=== PATIENT | female | born 2000 | race Caucasian/White ===

== ENCOUNTER 2020-07-18 06:13 | Emergency (ER) | payer SELFPAY ==
[2020-07-18] MEDS ORDERED: cefTRIAXone 1 GM in Premix Bag 1 BAG IV ONE (06:36)
[2020-07-18] MEDS ORDERED: Sodium Chloride 0.9% 1,000 ML IV ONE ×2 (06:36→06:41)
[2020-07-18] MEDS ORDERED: Sodium Chloride 0.9% 2.5 ML Syringe FLUSH PRN (06:36)
[2020-07-18] MEDS ORDERED: Ketorolac 30 MG/ML SDV IVPUSH ONE (06:36)
[2020-07-18] MEDS ORDERED: Sodium Chloride 0.9% 10 ML Syringe FLUSH PRN (06:36)
[2020-07-18] MEDS ORDERED: Acetaminophen 80 MG/2.5 ML Syringe PO STA (06:41)
--- NOTE | 2020-07-18 06:42 | EDM.PDOC ---
<Mike Almanza - Last Filed: 07/18/20 09:35> ED HPI GENERAL MEDICAL PROBLEM - General Chief Complaint: ENT Problem Stated Complaint: SWOLLEN LYMPH NODES, HARD TO SWALLOW Time Seen by Provider: 07/18/20 06:42 - Related Data Allergies Allergy/AdvReac Type Severity Reaction Status Date / Time No Known Allergies Allergy Verified 07/18/20 06:22 Home Meds: Home Meds Clindamycin HCl 300 mg PO TID #21 capsule 07/18/20 [Rx] dexAMETHasone [Dexamethasone] 10 mg PO ONETIME #2.5 mdv 07/18/20 [Rx] Departure - Departure Time of Disposition: 09:11 Disposition: Home, Self-Care 01 Condition: Fair Clinical Impression: Tonsillitis - Discharge Information *PRESCRIPTION DRUG MONITORING PROGRAM REVIEWED*: No *COPY OF PRESCRIPTION DRUG MONITORING REPORT IN PATIENT JESUSITA: No Prescriptions: Clindamycin HCl 300 mg PO TID #21 capsule dexAMETHasone [Dexamethasone] 10 mg PO ONETIME #2.5 mdv Instructions: Tonsillitis, [id number] Referrals: PCP,None [Primary Care Provider] - Forms: ED Department Discharge Additional Instructions: The patient is informed of any results of their evaluation and diagnostic workup and all questions are answered. They are given discharge instructions and return precautions. The patient is stable for discharge. The patient states they understand and agree with the plan and that they will return if their symptoms get worse or if they have any new concerns. The following information is given to patients seen in the emergency department who are being discharged to home. This information is to outline your options for follow-up care. We provide all patients seen in our emergency department with a follow-up referral. The need for follow-up, as well as the timing and circumstances, are variable depending upon the specifics of your emergency department visit. If you don't have a primary care physician on staff, we will provide you with a referral. We always advise you to contact your personal physician following an emergency department visit to inform them of the circumstance of the visit and for follow-up with them and/or the need for any referrals to a consulting specialist. The emergency department will also refer you to a specialist when appropriate. This referral assures that you have the opportunity for follow-up care with a specialist. All of these measure are taken in an effort to provide you with optimal care, which includes your follow-up. Under all circumstances we always encourage you to contact your private physician who remains a resource for coordinating your care. When calling for follow-up care, please make the office aware that this follow-up is from your recent emergency room visit. If for any reason you are refused follow-up, please contact the [facility] Emergency Department at and asked to speak to the emergency department charge nurse. Today you were diagnosed with tonsillitis. Please take 10 mg of dexamethasone as soon as you get home. Please complete antibiotics as prescribed. Please follow-up with Dr. Jones this week. Call the number below to schedule appointment. Return to the emergency department if trouble breathing, worsening swelling, and worsening speech. Dr. Jones [facility]NT [facility] [phone] <Ernie Hamilton - Last Filed: 07/18/20 20:36> ED HPI GENERAL MEDICAL PROBLEM - History of Present Illness INITIAL COMMENTS - FREE TEXT/NARRATIVE: HISTORY AND PHYSICAL: History of present illness: This is a 20-year-old female with no significant past medical history who presents ER today secondary to 4 days of sore throat with decreased p.o. intake and increased pain over the last couple days. Patient reports that she feels like her throat is muffled and has been having a hard time tolerating p.o. solids. Patient reports that she has been able to drink liquids with some success over the last 1 to 2 days. Patient reports tactile fevers. Patient denies any vomiting or diarrhea. Patient has any dysuria, frequency, urgency. Patient denies any coronavirus exposures or concerns. Patient denies any cough cold or runny nose. Patient has any abdominal pain or chest pain. Patient den ies any other sick family contacts at home. Patient denies any history of hypertension, diabetes, liver, lung, kidney problems. Patient denies any prior abdominal or chest surgeries. Patient has no known drug allergies. Patient denies any alcohol or drugs. Patient reports she does smoke 3 to 4 cigarettes daily. Review of systems: As per history of present illness and below otherwise all systems reviewed and negative. Past medical history: As per history of present illness and as reviewed below otherwise noncontributory. Surgical history: As per history of present illness and as reviewed below otherwise noncontributory. Social history: No reported history of drug or alcohol abuse. Family history: As per history of present illness and as reviewed below otherwise noncontributory. Physical exam: Constitutional: Patient is oriented to person, place, and time. Appears well- developed and well-nourished. No distress. HEENT: Moist mucous membranes Head: Normocephalic and atraumatic Eyes: Right eye exhibits no discharge. Left eye exhibits no discharge. No scleral icterus Neck: Normal range of motion. No tracheal deviation present. Cardiovascular: Normal rate and regular rhythm. Tachycardic with a heart rate of 10 5-1 10 Pulmonary: Effort normal, no respiratory distress. Abdominal: No distention Musculoskeletal: Normal range of motion Neurologic: Alert and oriented to person, place and time. Skin: [place], warm and dry. Psychiatric: Normal mood and affect. Behavior is normal. Judgment and thought content normal. Nursing note and vital signs have been reviewed Patient's ER physical exam is significant for markedly swollen tonsils. Patient's uvula is midline. Patient does have exudates identified in both tonsillar pillars. Patient has 2 fingerbreadth trismus, patient has no tenderness or swelling underneath her tongue or protrusion of her tongue, patient is tolerating her secretions well, patient has bilateral tender submandibular lymphadenopathy. There is no erythema of her neck. Patient's tympanic membrane's are both pearly roberts without any evidence of otitis media or externa is externa. No stridor. Patient's voice is not appear to be muffled although the patient reports that does feel like she is talking like a "deaf person ". Diagnostics: CBC, CMP, CT soft tissue neck with IV contrast, Covid, strep screen, Therapeutics: NSS wide open x2 L Toradol 30 mg IV x1 Tylenol elixir 640 mg p.o. x1 Rocephin 1 g IV Assessment and plan: This is a 20-year-old female who presents ER today with signs symptoms consistent with strep pharyngitis, peritonsillar abscess, possible retropharyngeal abscess. At this time, the patient is clinically and hemodynamically stable. Patient is not exhibiting any signs or symptoms that would be concerning for airway compromise. Patient's voice appears to be clear, she is tolerating her secretions well, there is no stridor, and on exam her tonsils do not appear to be kissing. Patient will receive Tylenol and Toradol to assist with her pain. Patient will receive 2 L normal saline secondary to dehydration and need for IV contrast. Patient get a CT scan of her soft tissue neck with IV contrast to further evaluate the pathology involved. Patient will have a Covid test as well as strep screen performed. Care will be signed out to Dr. Campbell at 7 AM. Definitive disposition and diagnosis as appropriate pending reevaluation and review of above. 07/18/2020 8:35 PM: Follow-up call made to assure continuity. Spoke to mother, reports patient is feeling well and is currently at her friend's house. Has filled her prescription and is taking her antibiotics. throat Pain Score (Numeric/FACES): 8 Past Medical History - Past Health History Medical/Surgical History: Denies Medical/Surgical History HEENT History: Reports: None Cardiovascular History: Reports: None Respiratory History: Reports: None Gastrointestinal History: Reports: None Genitourinary History: Reports: None IMMUNOPATHOLOGIST History: Reports: Musculoskeletal History: Reports: None Neurological History: Reports: None Psychiatric History: Reports: Anxiety, Depression Endocrine/Metabolic History: Reports: None Insulin Pump Model and Shiftman: None Hematologic History: Reports: None Immunologic History: Reports: None Oncologic (Cancer) History: Reports: None Dermatologic History: Reports: None - Infectious Disease History Infectious Disease History: Reports: None - Past Surgical History Head Surgeries/Procedures: Reports: None Social & Family History - Tobacco Use Tobacco Use Status *Q: Current Every Day Tobacco User Years of Tobacco use: 6 Packs/Tins Daily: 0.5 - Caffeine Use Caffeine Use: Reports: Tea - Recreational Drug Use Recreational Drug Use: No ED ROS GENERAL - Review of Systems Review Of Systems: See Below ED EXAM, GENERAL - Physical Exam Exam: See Below Course - Vital Signs Last Recorded V/S: Last Vital Signs Temp 97 F 07/18/20 06:23 Pulse 84 07/18/20 09:59 Resp 16 07/18/20 09:59 BP 119/70 07/18/20 09:59 Pulse Ox 98 07/18/20 09:59 - Orders/Labs/Meds Orders: Active Orders 24 hr Category Date Time Status CULTURE STREP A CONFIRMATION [RM] Stat Lab 07/18/20 06:42 Results STREP SCRN A RAPID W CULT CONF [RM] Stat Lab 07/18/20 06:42 Results Saline Lock Insert [OM.PC] Stat Oth 07/18/20 06:36 Ordered Labs: Laboratory Tests 07/18/20 07/18/20 07/18/20 Range/Units 06:40 06:40 06:40 WBC 20.46 H (4.0-11.0) K/uL RBC 4.34 (4.30-5.90) M/uL Hgb 14.3 (12.0-16.0) g/dL Hct 41.9 (36.0-46.0) % MCV 96.5 (80.0-98.0) fL MCH 32.9 H (27.0-32.0) pg MCHC 34.1 (31.0-37.0) g/dL RDW Std Deviation 47.6 (28.0-62.0) fl RDW Coeff of Len 13 (11.0-15.0) % Plt Count 212 (150-400) K/uL MPV 10.50 (7.40-12.00) fL Neut % (Auto) 82.7 H (48.0-80.0) % Lymph % (Auto) 8.1 L (16.0-40.0) % Bowie % (Auto) 8.9 (0.0-15.0) % Eos % (Auto) 0.2 (0.0-7.0) % Baso % (Auto) 0.1 (0.0-1.5) % Neut # (Auto) 16.9 H (1.4-5.7) K/uL Lymph # (Auto) 1.7 (0.6-2.4) K/uL Bowie # (Auto) 1.8 H (0.0-0.8) K/uL Eos # (Auto) 0.0 (0.0-0.7) K/uL Baso # (Auto) 0.0 (0.0-0.1) K/uL Nucleated RBC % 0.0 /100WBC Nucleated RBCs # 0 K/uL Sodium 139 (136-145) mmol/L Potassium 4.0 (3.5-5.1) mmol/L Chloride 101 (98-107) mmol/L Carbon Dioxide 26.0 (21.0-32.0) mmol/L BUN 9 (7.0-18.0) mg/dL Creatinine 1.0 (0.6-1.0) mg/dL Est Cr Clr Drug Dosing 92.22 mL/min Estimated GFR (MDRD) > 60.0 ml/min Glucose 115 H (74-106) mg/dL Calcium 9.7 (8.5-10.1) mg/dL Total Bilirubin 1.0 (0.2-1.0) mg/dL AST 11 L (15-37) IU/L ALT 17 (14-63) IU/L Alkaline Phosphatase 62 (46-116) U/L Total Protein 8.3 H (6.4-8.2) g/dL Albumin 3.7 (3.4-5.0) g/dL Globulin 4.6 H (2.6-4.0) g/dL Albumin/Globulin Ratio 0.8 L (0.9-1.6) HCG, Qual NEGATIVE (NEG) SARS-CoV-2 RNA (DEBBI) (NEGATIVE) 07/18/20 Range/Units 07:45 WBC (4.0-11.0) K/uL RBC (4.30-5.90) M/uL Hgb (12.0-16.0) g/dL Hct (36.0-46.0) % MCV (80.0-98.0) fL MCH (27.0-32.0) pg MCHC (31.0-37.0) g/dL RDW Std Deviation (28.0-62.0) fl RDW Coeff of Len (11.0-15.0) % Plt Count (150-400) K/uL MPV (7.40-12.00) fL Neut % (Auto) (48.0-80.0) % Lymph % (Auto) (16.0-40.0) % Bowie % (Auto) (0.0-15.0) % Eos % (Auto) (0.0-7.0) % Baso % (Auto) (0.0-1.5) % Neut # (Auto) (1.4-5.7) K/uL Lymph # (Auto) (0.6-2.4) K/uL Bowie # (Auto) (0.0-0.8) K/uL Eos # (Auto) (0.0-0.7) K/uL Baso # (Auto) (0.0-0.1) K/uL Nucleated RBC % /100WBC Nucleated RBCs # K/uL Sodium (136-145) mmol/L Potassium (3.5-5.1) mmol/L Chloride (98-107) mmol/L Carbon Dioxide (21.0-32.0) mmol/L BUN (7.0-18.0) mg/dL Creatinine (0.6-1.0) mg/dL Est Cr Clr Drug Dosing mL/min Estimated GFR (MDRD) ml/min Glucose (74-106) mg/dL Calcium (8.5-10.1) mg/dL Total Bilirubin (0.2-1.0) mg/dL AST (15-37) IU/L ALT (14-63) IU/L Alkaline Phosphatase (46-116) U/L Total Protein (6.4-8.2) g/dL Albumin (3.4-5.0) g/dL Globulin (2.6-4.0) g/dL Albumin/Globulin Ratio (0.9-1.6) HCG, Qual (NEG) SARS-CoV-2 RNA (DEBBI) NEGATIVE (NEGATIVE) Meds: Medications Discontinued Medications Generic Name Dose Route Start Last Admin Trade Name Freq PRN Reason Stop Dose Admin Acetaminophen 640 mg 07/18/20 06:41 07/18/20 07:01 Children's Acetaminophen PO 07/18/20 06:42 Not Given NOW STA Acetaminophen 650 mg 07/18/20 07:01 07/18/20 07:04 Tylenol PO 07/18/20 07:02 650 mg NOW ONE Administration Acetaminophen Confirm 07/18/20 06:58 07/18/20 07:04 Tylenol Administered 07/18/20 06:59 Not Given Dose 650 mg .ROUTE .STK-MED ONE Dexamethasone 10 mg 07/18/20 08:35 07/18/20 09:02 Decadron IVPUSH 07/18/20 08:36 10 mg ONETIME ONE Administration Ceftriaxone Sodium/Dextrose 1 50 mls @ 100 mls/hr 07/18/20 06:36 07/18/20 07:02 gm/ Premix IV 07/18/20 07:05 100 mls/hr ONETIME ONE Administration Sodium Chloride 1,000 mls @ 999 mls/hr 07/18/20 06:36 07/18/20 07:00 Normal Saline IV 07/18/20 07:36 999 mls/hr .Bolus ONE Administration Sodium Chloride 1,000 mls @ 999 mls/hr 07/18/20 06:41 07/18/20 07:39 Normal Saline IV 07/18/20 07:41 999 mls/hr .Bolus ONE Administration Iopamidol 100 ml 07/18/20 07:33 07/18/20 07:34 Isovue-370 (76%) IVPUSH 07/18/20 07:34 100 ml ONETIME ONE Administration Ketorolac Tromethamine 30 mg 07/18/20 06:36 07/18/20 07:00 Toradol IVPUSH 07/18/20 06:37 30 mg ONETIME ONE Administration Sodium Chloride 10 ml 07/18/20 06:36 07/18/20 07:39 Saline Flush FLUSH 10 ml ASDIRECTED PRN Administration Keep Vein Open Sodium Chloride 2.5 ml 07/18/20 06:36 07/18/20 07:39 Saline Flush FLUSH 2.5 ml ASDIRECTED PRN Administration Keep Vein Open Sepsis Event Note (ED) - Evaluation Sepsis Screening Result: No Definite Risk - Focused Exam Vital Signs: Vital Signs Pulse Resp BP Pulse Ox 07/18/20 09:59 84 16 119/70 98 07/18/20 09:24 94 16 117/60 98 07/18/20 08:54 79 16 127/61 98 - My Orders Last 24 Hours: My Active Orders 07/18/20 06:36 Saline Lock Insert [OM.PC] Stat 07/18/20 06:42 CULTURE STREP A CONFIRMATION [RM] Stat STREP SCRN A RAPID W CULT CONF [] Stat - Assessment/Plan Last 24 Hours: My Active Orders 07/18/20 06:36 Saline Lock Insert [OM.PC] Stat 07/18/20 06:42 CULTURE STREP A CONFIRMATION [RM] Stat STREP SCRN A RAPID W CULT CONF [RM] Stat
[2020-07-18] MEDS ORDERED: Acetaminophen 325 MG/10.15 ML ML ONE (06:58)
[2020-07-18] MEDS ORDERED: Acetaminophen 325 MG/10.15 ML ML PO ONE (07:01)
[2020-07-18 07:07] LABS: BLOOD UREA NITROGEN,BUN 9 mg/dL (7.0-18.0); CHLORIDE,CL 101 mmol/L (98-107); GLUCOSE RANDOM 115 mg/dL (74-106); SODIUM,NA 139 mmol/L (136-145)
[2020-07-18] MEDS ORDERED: Iopamidol 755 Mg/ML 100 ML Bottle IVPUSH ONE (07:33)
--- NOTE | 2020-07-18 07:45 | CT ---
INDICATION: Throat pain with trismus. TECHNIQUE: Performed with IV contrast. Contrast: 80 mL of Isovue 370. COMPARISON: None FINDINGS: There is moderate asymmetric enlargement and poor definition of the right oral pharyngeal tonsil, with a small apparent 7 mm peritonsillar fluid collection along its anterior aspect. This is accompanied by blurring of the adjacent tissue planes and mild mass effect extending into the adjacent registered dietetic technician space, submandibular space and tongue base on the right, causing caudal displacement of the right submandibular salivary gland. The appearance is compatible with acute tonsillitis with a small abscess collection. The process produces mild mass effect on the oropharyngeal airway and right supraglottic larynx. Level IIa lymphadenopathy is present bilaterally, more pronounced on the right where there is a 25 mm enlarged node demonstrating heterogeneous pathologic contrast enhancement. Moderate enlargement of the left oropharyngeal tonsil and the nasopharyngeal tonsillar tissue. Normal size lymph nodes are scattered elsewhere along both sides of the neck. The parotid glands, left submandibular gland and thyroid gland are all unremarkable. No worrisome skeletal lesions are identified. The visualized portions of the intracranial contents and apical hemithoraces are unremarkable. IMPRESSION: 1. Ill definition and moderate enlargement of the right oropharyngeal tonsil, with a probable small 7 mm peritonsillar collection anteriorly. 2. Infiltration of the tissue planes in the right upper neck, accompanied by mild mass effect. 3. The appearance is typical for tonsillitis with a small peritonsillar abscess and moderate surrounding cellulitis/phlegmon. 4. Level IIa lymphadenopathy, more pronounced on the right. Please note that all CT scans at this facility use dose modulation, iterative reconstruction, and/or weight-based dosing when appropriate to reduce radiation dose to as low as reasonably achievable. Dictated by Sachin Ramirez MD @ Jul 18 2020 8:53AM Signed by Dr. Sachin Ramirez @ Jul 18 2020 9:06AM
[2020-07-18] MEDS ORDERED: Dexamethasone 10 MG/ML SDV IVPUSH ONE (08:35)
[2020-07-18 09:59] VITALS: BP 119/70; PULSE 84
--- NOTE | 2020-07-19 18:05 | PCM.SN.2 ---
- Free Text/Narrative Note: I contacted patient and she stated that she was feeling much better and was able to eat a full meal and she is now only feeling pain in her throat when she swallows. She stated that her voice has improved and that the swelling has gone down. I discussed continued use of the antibiotics and to return to the ED if she had any worsening symptoms.
== END 2020-07-18 10:03 | disposition home or self-care (01) ==
LOC: MW.ED 06:13
DX: J02.9 Acute pharyngitis, unspecified (principal); F17.210 Nicotine dependence, cigarettes, uncomplicated; Z20.828 Contact with and (suspected) exposure to other viral communicable diseases
CPT/HCPCS: 70491; 80053; 84703; 85025; 87081; 87635; 87880; 96365; 96375; 99284; A9270; J0696; J1100; J1885; J7030; Q9967; 99285; U0002

== ENCOUNTER 2020-09-14 15:02 | Emergency (ER) | payer SELFPAY ==
[2020-09-14] MEDS ORDERED: Dexamethasone 10 MG/ML SDV IVPUSH ONE (15:37)
[2020-09-14] MEDS ORDERED: Sodium Chloride 0.9% 1,000 ML IV ONE ×2 (15:39→18:33)
[2020-09-14] MEDS ORDERED: Clindamycin Phosphate in D5W 300 MG in Premix Bag 1 BAG IV ONE ×2 (16:00)
[2020-09-14 16:26] LABS: BLOOD UREA NITROGEN,BUN 11 mg/dL (7.0-18.0); CARBON DIOXIDE,CO2 26.8 mmol/L (21.0-32.0); CHLORIDE,CL 101 mmol/L (98-107); GLUCOSE RANDOM 105 mg/dL (74-106); POTASSIUM,K 3.8 mmol/L (3.5-5.1); SODIUM,NA 137 mmol/L (136-145)
[2020-09-14] MEDS ORDERED: Iopamidol 755 MG/ML 500 ML Multipack Bottle IVPUSH ONE (17:14)
--- NOTE | 2020-09-14 17:46 | CT ---
INDICATION: Right tonsillar swelling. Throat pain TECHNIQUE: CT soft tissue of the neck was acquired with IV contrast. 75 mL of Isovue 370 administered. COMPARISON: 07/18/2020 FINDINGS: The adenoids are enlarged. There is enlargement of the palatine tonsils. There are edematous and phlegmonous changes adjacent to the right palatine tonsil and in the right parapharyngeal space. An 8 x 6 mm ovoid low-density focus is again seen anterior to the right palatine tonsil on image 78 of series 201, with mild surrounding soft tissue enhancement. A small focus of gas in the medial aspect of the right palatine tonsil was seen on the prior study and is at least partially related to a mucosal fold. There is thickening and edema of the soft palate. The hypopharynx and larynx are patent. The parotid, sublingual and left submandibular glands are within normal limits. There is edema along the superior aspect of the right submandibular gland which could be related to the right tonsillar inflammatory process, however there is soft tissue prominence and enhancement along the right submandibular duct. No discrete thyroid abnormality is visualized. There is an enlarged, mildly enhancing, right level 2 lymph node measuring 1.3 cm in short axis. A borderline left level 2 lymph node is seen. There are mucosal retention cysts or polyps in the right maxillary and right sphenoid sinuses, and mild mucosal thickening in the left maxillary sinus. The mastoid air cells are clear. No suspicious or acute osseous abnormalities are seen. There is mild reversal of the cervical lordosis. Thymic tissue is noted in the superior mediastinum. IMPRESSION: Findings consistent with right tonsillitis with peritonsillar edema and phlegmon extending to the parapharyngeal space, and an 8 mm evolving peritonsillar abscess anteriorly. Edema along the superior aspect of the right submandibular gland could be partially reactive, however there is thickening and enhancement along the right submandibular duct and correlation for right submandibular sialoadenitis is advised. An enlarged right level 2 lymph node and a borderline left level 2 lymph node. Mild paranasal sinus disease. Please note that all CT scans at this facility use dose modulation, iterative reconstruction, and/or weight-based dosing when appropriate to reduce radiation dose to as low as reasonably achievable. Dictated by Lino Noel MD @ Sep 14 2020 5:32PM Signed by Dr. Lino Noel @ Sep 14 2020 5:45PM
[2020-09-14] MEDS ORDERED: Ampicillin/Sulbactam Na 3 GM in Sodium Chloride 0.9% 100 ML IV ONE (18:33)
--- NOTE | 2020-09-14 19:01 | EDM.PDOC ---
ED HPI GENERAL MEDICAL PROBLEM - General Chief Complaint: ENT Problem Stated Complaint: POSSIBLE ABCESS IN THROAT Time Seen by Provider: 09/14/20 15:07 Source of Information: Reports: Patient History Limitations: Reports: No Limitations - History of Present Illness INITIAL COMMENTS - FREE TEXT/NARRATIVE: HISTORY AND PHYSICAL: History of present illness: Patient is a 20-year-old female who presents emergency room today with concern of sore throat over 2 to 3 days. Patient states that she has had a prior abscess of her throat and states that her symptoms today are similar to when she had a prior abscess. Patient states at that time, the abscess had drained spontaneously and states that she did not have to have it drained. Patient states that she is having right-sided sore throat pain which is how she felt when she had the abscess drained. Patient states she has not taken anything for her symptoms. Patient states that she has been able to eat and drink but does have pain with swallowing. Denies any other symptoms or concerns. Patient denies fever, chills, chest pain, shortness of breath, or cough. Denies headache, neck stiff ness, change in vision, syncope, or near syncope. Denies nausea, vomiting, abdominal pain, diarrhea, constipation, or dysuria. Has not noted any blood in urine or stool. Patient has been eating and drinking appropriately. Review of systems: As per history of present illness and below otherwise all systems reviewed and negative. Past medical history: As per history of present illness and as reviewed below otherwise noncontribu tory. Surgical history: As per history of present illness and as reviewed below otherwise noncontributory. Social history: See social history for further information Family history: As per history of present illness and as reviewed below otherwise noncontributory. Physical exam: General: Patient is alert, oriented, and in no acute distress. Patient sitting comfortably on exam table. Tachycardic 110s on exam, otherwise vitally stable. HEENT: Atraumatic, normocephalic, pupils equal and reactive bilaterally, negative for conjunctival pallor or scleral icterus, mucous membranes moist, TMs normal bilaterally, there is right sided tonsil fullness, uvula midline, neck supple, nontender, trachea midline. No drooling or trismus noted. No meningeal signs. No hot potato voice noted. Lungs: Clear to auscultation, breath sounds equal bilaterally, chest nontender. Heart: S1S2, regular rate and rhythm without overt murmur Abdomen: Soft, nondistended, nontender. Negative for masses or hepatosp lenomegaly. Negative for costovertebral tenderness. Pelvis: Stable nontender. Genitourinary: Deferred. Rectal: Deferred. Skin: Intact, warm, dry. No lesions or rashes noted. Extremities: Atraumatic, negative for cords or calf pain. Neurovascular unremarkable. Neuro: Awake, alert, oriented. Cranial nerves II through XII unremarkable. Cerebellum unremarkable. Motor and sensory unremarkable throughout. Exam nonfocal. Notes: I did call and speak to the ENT legal services professional for [facility], Dr. Hauser, and thoroughly discussed patients case. He states that at this time the abscess is so small, it cannot be drained until 2.5-3cm in size. He recommends an additional 3g unasyn and to discharge to home with Augmentin and Decadron. Admission for observation was offered to patient but she declines at this time. All risks vs benefits discussed with patient and expresses understanding. Voices understanding and is agreeable to plan of care. Denies any further questions or concerns at this time. Diagnostics: CBC, CMP, Hcg, Strep, Soft Tissue Neck CT w cont Therapeutics: NS, Clindamycin, Unasyn, Decadron Prescription: Augmentin, Decadron Impression: Pharyngitis possibly early peritonsillar abscess Plan: 1. Take medication as prescribed. Use cough drops and/or other over the counter medications as needed for throat discomfort as discussed. Drink small but frequent sips of fluid to prevent dehydration. 2. Alternate Ibuprofen and Tylenol as directed for pain and discomfort. 3. Follow up with your primary care provider as discussed. 4. Return to the ED as needed and as discussed. Definitive disposition and diagnosis as appropriate pending reevaluation and review of above. Throat Pain Score (Numeric/FACES): 6 - Related Data Allergies Allergy/AdvReac Type Severity Reaction Status Date / Time No Known Allergies Allergy Verified 09/14/20 15:13 Home Meds: Home Meds Amoxicillin/Potassium Clav [Augmentin 875-125 Tablet] 1 each PO BID 10 Days #20 tablet 09/14/20 [Rx] dexAMETHasone [Decadron] 6 mg PO DAILY 3 Days #3 tablet 09/14/20 [Rx] Past Medical History - Past Health History Medical/Surgical History: Denies Medical/Surgical History HEENT History: Reports: None Cardiovascular History: Reports: None Respiratory History: Reports: None Gastrointestinal History: Reports: None Genitourinary History: Reports: None 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: Musculoskeletal History: Reports: None Neurological History: Reports: None Psychiatric History: Reports: Anxiety, Depression Endocrine/Metabolic History: Reports: None Insulin Pump Model and Patient Account Liaison: None Hematologic History: Reports: None Immunologic History: Reports: None Oncologic (Cancer) History: Reports: None Dermatologic History: Reports: None - Infectious Disease History Infectious Disease History: Reports: None - Past Surgical History Head Surgeries/Procedures: Reports: None Social & Family History - Tobacco Use Tobacco Use Status *Q: Current Every Day Tobacco User Years of Tobacco use: 10 Packs/Tins Daily: 0.3 - Caffeine Use Caffeine Use: Reports: Coffee, Energy Drinks, Soda, Tea - Recreational Drug Use Recreational Drug Use: No ED ROS GENERAL - Review of Systems Review Of Systems: Comprehensive ROS is negative, except as noted in HPI. ED EXAM, GENERAL - Physical Exam Exam: See Below (see dictation) Course - Vital Signs Last Recorded V/S: Last Vital Signs Temp 97.2 F 09/14/20 15:13 Pulse 96 09/14/20 19:45 Resp 16 09/14/20 19:45 BP 122/70 09/14/20 19:45 Pulse Ox 96 09/14/20 19:45 - Orders/Labs/Meds Orders: Active Orders 24 hr Category Date Time Status CULTURE BLOOD [BC] Stat Lab 09/14/20 16:40 Received CULTURE BLOOD [BC] Stat Lab 09/14/20 16:50 Received Blood Culture x2 Reflex Set [OM.PC] Stat Oth 09/14/20 16:22 Ordered Labs: Laboratory Tests 09/14/20 09/14/20 09/14/20 Range/Units 15:50 15:50 15:50 WBC 19.05 H (4.0-11.0) K/uL RBC 4.71 (4.30-5.90) M/uL Hgb 15.6 (12.0-16.0) g/dL Hct 45.2 (36.0-46.0) % MCV 96.0 (80.0-98.0) fL MCH 33.1 H (27.0-32.0) pg MCHC 34.5 (31.0-37.0) g/dL RDW Std Deviation 48.4 (28.0-62.0) fl RDW Coeff of Len 14 (11.0-15.0) % Plt Count 222 (150-400) K/uL MPV 10.30 (7.40-12.00) fL Neut % (Auto) 84.2 H (48.0-80.0) % Lymph % (Auto) 8.7 L (16.0-40.0) % [place] % (Auto) 6.8 (0.0-15.0) % Eos % (Auto) 0.2 (0.0-7.0) % Baso % (Auto) 0.1 (0.0-1.5) % Neut # (Auto) 16.0 H (1.4-5.7) K/uL Lymph # (Auto) 1.7 (0.6-2.4) K/uL [place] # (Auto) 1.3 H (0.0-0.8) K/uL Eos # (Auto) 0.0 (0.0-0.7) K/uL Baso # (Auto) 0.0 (0.0-0.1) K/uL Nucleated RBC % 0.0 /100WBC Nucleated RBCs # 0 K/uL Lactate (0.20-2.00) mmol/L Sodium 137 (136-145) mmol/L Potassium 3.8 (3.5-5.1) mmol/L Chloride 101 (98-107) mmol/L Carbon Dioxide 26.8 (21.0-32.0) mmol/L BUN 11 (7.0-18.0) mg/dL Creatinine 0.9 (0.6-1.0) mg/dL Est Cr Clr Drug Dosing 102.47 mL/min Estimated GFR (MDRD) > 60.0 ml/min Glucose 105 (74-106) mg/dL Calcium 9.1 (8.5-10.1) mg/dL Total Bilirubin 0.9 (0.2-1.0) mg/dL AST 13 L (15-37) IU/L ALT 28 (14-63) IU/L Alkaline Phosphatase 73 (46-116) U/L Total Protein 8.4 H (6.4-8.2) g/dL Albumin 4.1 (3.4-5.0) g/dL Globulin 4.3 H (2.6-4.0) g/dL Albumin/Globulin Ratio 1.0 (0.9-1.6) HCG, Qual NEGATIVE (NEG) Group A Strep (PCR) (NOT DETECT) 09/14/20 09/14/20 Range/Units 15:52 16:40 WBC (4.0-11.0) K/uL RBC (4.30-5.90) M/uL Hgb (12.0-16.0) g/dL Hct (36.0-46.0) % MCV (80.0-98.0) fL MCH (27.0-32.0) pg MCHC (31.0-37.0) g/dL RDW Std Deviation (28.0-62.0) fl RDW Coeff of Len (11.0-15.0) % Plt Count (150-400) K/uL MPV (7.40-12.00) fL Neut % (Auto) (48.0-80.0) % Lymph % (Auto) (16.0-40.0) % [place] % (Auto) (0.0-15.0) % Eos % (Auto) (0.0-7.0) % Baso % (Auto) (0.0-1.5) % Neut # (Auto) (1.4-5.7) K/uL Lymph # (Auto) (0.6-2.4) K/uL [place] # (Auto) (0.0-0.8) K/uL Eos # (Auto) (0.0-0.7) K/uL Baso # (Auto) (0.0-0.1) K/uL Nucleated RBC % /100WBC Nucleated RBCs # K/uL Lactate 0.7 (0.20-2.00) mmol/L Sodium (136-145) mmol/L Potassium (3.5-5.1) mmol/L Chloride (98-107) mmol/L Carbon Dioxide (21.0-32.0) mmol/L BUN (7.0-18.0) mg/dL Creatinine (0.6-1.0) mg/dL Est Cr Clr Drug Dosing mL/min Estimated GFR (MDRD) ml/min Glucose (74-106) mg/dL Calcium (8.5-10.1) mg/dL Total Bilirubin (0.2-1.0) mg/dL AST (15-37) IU/L ALT (14-63) IU/L Alkaline Phosphatase (46-116) U/L Total Protein (6.4-8.2) g/dL Albumin (3.4-5.0) g/dL Globulin (2.6-4.0) g/dL Albumin/Globulin Ratio (0.9-1.6) HCG, Qual (NEG) Group A Strep (PCR) NOT DETECTED (NOT DETECT) Meds: Medications Discontinued Medications Generic Name Dose Route Start Last Admin Trade Name Freq PRN Reason Stop Dose Admin Dexamethasone 6 mg 09/14/20 15:37 09/14/20 15:53 Decadron IVPUSH 09/14/20 15:38 6 mg ONETIME ONE Administration Sodium Chloride 1,000 mls @ 999 mls/hr 09/14/20 15:39 09/14/20 15:52 Normal Saline IV 09/14/20 16:39 999 mls/hr STAT ONE Administration Clindamycin Phosphate 300 mg/ 50 mls @ 96.154 mls/hr 09/14/20 16:00 09/14/20 16:05 Premix IV 09/14/20 16:31 96.154 mls/hr ONETIME ONE Administration Ampicillin Sodium/Sulbactam 100 mls @ 200 mls/hr 09/14/20 18:33 09/14/20 18:59 Sodium 3 gm/ Sodium Chloride IV 09/14/20 19:02 200 mls/hr ONETIME ONE Administration Sodium Chloride 1,000 mls @ 999 mls/hr 09/14/20 18:33 09/14/20 18:39 Normal Saline IV 09/14/20 19:33 999 mls/hr STAT ONE Administration Iopamidol 75 ml 09/14/20 17:14 09/14/20 17:16 Isovue Multipack-370 (76%) IVPUSH 09/14/20 17:15 75 ml ONETIME ONE Administration Departure - Departure Time of Disposition: 19:00 Disposition: Home, Self-Care 01 Clinical Impression: Peritonsillar abscess Pharyngitis Qualifiers: Pharyngitis/tonsillitis etiology: unspecified etiology Qualified Code(s): J02.9 - Acute pharyngitis, unspecified - Discharge Information Prescriptions: Amoxicillin/Potassium Clav [Augmentin 875-125 Tablet] 1 each PO BID 10 Days #20 tablet dexAMETHasone [Decadron] 6 mg PO DAILY 3 Days #3 tablet Instructions: Peritonsillar Abscess, [id number] Referrals: PCP,None [Primary Care Provider] - Forms: ED Department Discharge Additional Instructions: The following information is given to patients seen in the emergency department who are being discharged to home. This information is to outline your options for follow-up care. We provide all patients seen in our emergency department with a follow-up referral. The need for follow-up, as well as the timing and circumstances, are variable depending upon the specifics of your emergency department visit. If you don't have a primary care physician on staff, we will provide you with a referral. We always advise you to contact your personal physician following an emergency department visit to inform them of the circumstance of the visit and for follow-up with them and/or the need for any referrals to a consulting specialist. The emergency department will also refer you to a specialist when appropriate. This referral assures that you have the opportunity for follow-up care with a specialist. All of these measure are taken in an effort to provide you with optimal care, which includes your follow-up. Under all circumstances we always encourage you to contact your private physician who remains a resource for coordinating your care. When calling for follow-up care, please make the office aware that this follow-up is from your recent emergency room visit. If for any reason you are refused follow-up, please contact the [facility] Emergency Department at and asked to speak to the emergency department charge nurse. [facility] [address] [place] [id number] [address] 1. Take medication as prescribed. Use cough drops and/or other over the counter medications as needed for throat discomfort as discussed. Drink small but frequent sips of fluid to prevent dehydration. 2. Alternate Ibuprofen and Tylenol as directed for pain and discomfort. 3. Follow up with your primary care provider as discussed. 4. Return to the ED as needed and as discussed. Sepsis Event Note (ED) - Evaluation Sepsis Screening Result: No Definite Risk - My Orders Last 24 Hours: My Active Orders 09/14/20 16:22 Blood Culture x2 Reflex Set [OM.PC] Stat 09/14/20 16:40 CULTURE BLOOD [BC] Stat 09/14/20 16:50 CULTURE BLOOD [BC] Stat - Assessment/Plan Last 24 Hours: My Active Orders 09/14/20 16:22 Blood Culture x2 Reflex Set [OM.PC] Stat 09/14/20 16:40 CULTURE BLOOD [BC] Stat 09/14/20 16:50 CULTURE BLOOD [BC] Stat
[2020-09-15 01:22] VITALS: BP 122/70; PULSE 96
== END 2020-09-14 19:45 | disposition home or self-care (01) ==
LOC: MW.ED 15:02
DX: J02.9 Acute pharyngitis, unspecified (principal); Z72.0 Tobacco use
CPT/HCPCS: 36415; 70491; 80053; 83605; 84703; 85025; 87040; 87651; 96365; 96367; 96375; 99284; J0295; J1100; J3490; J7030; Q9967

== ENCOUNTER 2021-01-18 16:29 | Emergency (ER) | payer OTHER, MEDICAID ==
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
[2021-01-18 17:34] VITALS: BP 136/85; PULSE 98
== END 2021-01-18 17:33 | disposition home or self-care (01) ==
LOC: MW.ED 16:29
DX: Z04.1 Encounter for examination and observation following transport accident (principal)
CPT/HCPCS: 99282; 99283